=== PATIENT | male | born 1945 | race Caucasian/White ===

== ENCOUNTER 2017-03-23 09:25 | Outpatient (CLI) | payer OTHER ==
--- NOTE | 2017-04-12 13:53 | EEG ---
Referring Physician: DR. CHANA CASTRO EEG # [id number] PROCEDURE: Outpatient sleep deprived electroencephalogram NAME OF PATIENT: Richard Vega DATE OF EE03/23/2017 INDICATION: Seizure. REPORT: This is a 22-channel digital EEG recording utilizing 10-20 international electrode placement system on a patient with history of meningioma status post resection with dalila holes in the right anterior region with seizure. During wakefulness the background activity consists predominantly of low amplitude dominant alpha rhythm of 9-10 Hz. It is symmetric and reactive. This activity is penetrated occasionally by low amplitude fast beta activity and with myogenic activity representing frontalis and temporalis muscles bilaterally. There is breach rhythm noted in the right frontal region consisting of mixed frequencies. DROWSINESS AND SLEEP: Subject is able to attain periods of drowsiness with diffuse theta activity. Subject is able to attain some sleep, non-REM sleep with normal sleep potentials. There is no consistent asymmetry or paroxysmal activity noted except the breach rhythm in the right frontal region. 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 However, there is no clear epileptiform activity noted. No electrographic seizures noted. INDUCTION: HYPERVENTILATION: With fair effort results in no significant change in the background activity. PHOTIC STIMULATION: No photic drive seen. EK per minute. IMPRESSION: This is a sleep deprived EEG recorded for one hour. This EEG is considered normal. 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 However, there is no clear epileptiform activity noted. No electrographic seizures noted. Clinical correlation recommended. Electrotype Caster: [employer] Leader: [email or web address]
== END 2017-03-23 09:26 | disposition home or self-care (01) ==
LOC: EEG 09:25
PROVIDERS: ATTEND Student in an Organized Health Care Education/Training Program
DX: G40.409 Other generalized epilepsy and epileptic syndromes, not intractable, without status epilepticus (principal); Z98.890 Other specified postprocedural states
CPT/HCPCS: 95822

== ENCOUNTER 2025-02-02 07:45 | Inpatient (IN) | payer OTHER ==
[2025-02-02] MEDS ORDERED: KETAMINE 100 MG/ML (5ML VIAL) ONE (08:01)
[2025-02-02] MEDS ORDERED: Rocuronium Bromide 10 MG/ML (10ML VIAL) ONE (08:03)
[2025-02-02 10:24] LABS: Actual Bicarbonate (HCO3v) 24.2 mEq/L (22-28); Analyzer IN Cardio ER; Base Excess 1.3 mEq/L (-2.0 to +3.0); Calcium, Ionized (venous) 1.00 mmol/L (1.16-1.32); Chloride (VBG) 107 mmol/L (98-106); Hematocrit-VBG 44 % (42.0-52.0); Hemoglobin (Hb) 14.8 g/dL (12.6-17.4); Potassium (VBG) 4.27 mmol/L (3.70-5.30); Sodium 146 mmol/L (133-146)
[2025-02-02 10:55] LABS: #Basophils 0.03 10x3/uL (0.0-0.2); #Eosinophils 0.05 10x3/uL (0.0-0.7); #Monocytes 0.79 10x3/uL (0.11-0.59); #Neutrophils 13.40 10x3/uL (1.40-6.50); %Basophils 0.2 % (0.0-1.0); %Eosinophils 0.3 % (0.0-10.0); %Lymphocytes 6.5 % (21.0-51.0); %Monocytes 5.1 % (0.0-10.0); %Neutrophils 86.6 % (42.0-75.0); Hematocrit 40.1 % (42.0-52.0); Hemoglobin 13.9 g/dL (14.0-18.0); Mean Corpuscular Hemoglobin 31.0 pg (27.0-31.0); Mean Corpuscular Volume 89.3 fL (78.0-98.0); Platelet Count 131 10x3/uL (130-400); Red Blood Cell (RBC) Count 4.49 mill/uL (4.70-6.10); White Blood Cell (WBC) Count 15.48 10x3/uL (4.8-10.8)
[2025-02-02 10:57] LABS: INR-International Normal Ratio 1.4; Prothrombin Time 17.4 sec (12.0-14.7)
[2025-02-02 10:58] LABS: PTT 32.8 sec (22.9-36.1)
[2025-02-02 11:06] LABS: CK (CPK) 1007 U/L (30-200)
[2025-02-02 11:09] LABS: ALT (SGPT) 229 U/L (Less than 45); AST (SGOT) 248 U/L (11-34); Albumin 3.6 g/dL (3.1-4.5); Alkaline Phosphatase 67 U/L (40-110); Anion Gap 18 mmol/L (10-20); BUN (Urea Nitrogen) 21 mg/dL (8.4-25.7); Bilirubin, Total 0.6 mg/dL (0.3-1.2); Calc. Creatinine Clearance 0 mL/min (70-130); Calcium 8.2 mg/dL (7.8-10.44); Carbon Dioxide 23 mmol/L (23-31); Chloride 110 mmol/L (98-107); Globulin 3.1 g/dL (2.4-3.5); Glucose 230 mg/dL (83-110); Lipase 52 U/L (8-78); Magnesium 2.1 mg/dL (1.6-2.6); Potassium 4.3 mmol/L (3.5-5.1); Sodium 147 mmol/L (136-145)
[2025-02-02] MEDS ORDERED: Cefepime 2 GM VIAL ONE (11:52)
[2025-02-02 13:55] LABS: Glucose, Urine (Dipstick) 100 mg/dL (Negative); Leukocyte Negative (Negative); Protein, Urine (Dipstick) > or equal to 300 mg/dL (Neg-Trace); Specific Gravity, Urine Greater/Equal 1.030 (1.005-1.030)
[2025-02-02 14:04] LABS: Cocaine Metabolite Screen Negative (Negative); THC/Cannabinoid Screen Negative (Negative); Tricyclic Screen Negative (Negative)
[2025-02-02 14:15] LABS: CAUTI Indications for Culture < 2yrs of age
[2025-02-02 14:16] LABS: Bacteria/HPF 2+ HPF (None Seen)
[2025-02-02 14:17] LABS: Urine Culture Reflex Yes Yes
[2025-02-02] MEDS ORDERED: Electrolyte Replacement Protocol 1 EACH FS ONE (14:17)
[2025-02-02] MEDS ORDERED: Ventilator Sedation Protocol 1 EACH FS SCH (14:17)
[2025-02-02] MEDS ORDERED: Norepinephrine 8 MG/0.9% NS 250 ML IVPB SCH (14:30)
[2025-02-02] MEDS ORDERED: Fentanyl BOLUS 100 ML IVPB PRN (14:30)
[2025-02-02] MEDS ORDERED: Propofol BOLUS 1,000 MG/100 ML VIAL IV PRN (14:30)
[2025-02-02] MEDS ORDERED: DISCONTINUE PREVIOUS NARCOTIC PAIN MEDICATIONS AND BENZODIAZEPINES FS SCH (14:30)
[2025-02-02] MEDS ORDERED: Potassium Chloride 20 MEQ in Premix 1 BAG IVPB PRN (14:45)
[2025-02-02] MEDS ORDERED: PHOS-NAK 1 PKT PACK PO PRN (14:45)
[2025-02-02 14:59] LABS: Actual Bicarbonate (HCO3a) 25.1 mEq/L (22-28); Base Excess (BEa) 0.8 mEq/L (-2.0 to +3.0); CO2 Tension 38.8 mmHg (35.0-45.0); Calcium, Ionized (arterial) 1.07 mmol/L (1.12-1.30); Hematocrit-ABG 39 % (42.0-52.0); Hemoglobin (Hb) 13.3 g/dL (14.0-18.0); O2 Tension (PaO2), arterial 148.5 mmHg (> 70.0); Potassium - ABG Lab 4.20 mmol/L (3.70-5.30); pH, Arterial 7.428 (7.35-7.45)
[2025-02-02 15:00] LABS: Puncture Site Right Radial artery
[2025-02-02 17:01] VITALS: BMI 31.2
[2025-02-03 01:18] LABS: Campy jejuni + coli by PCR Negative (Negative); STEC Shiga Toxin 1+2 Negative (Negative); Salmonella spp. by PCR Negative (Negative); Shigella spp + EIEC by PCR Negative (Negative)
[2025-02-03 04:22] LABS: #Basophils Less than 0.03 10x3/uL (0.0-0.2); #Eosinophils Less than 0.03 10x3/uL (0.0-0.7); #Monocytes 0.88 10x3/uL (0.11-0.59); #Neutrophils 12.07 10x3/uL (1.40-6.50); %Basophils 0.1 % (0.0-1.0); %Eosinophils 0.0 % (0.0-10.0); %Lymphocytes 8.4 % (21.0-51.0); %Monocytes 6.2 % (0.0-10.0); %Neutrophils 84.9 % (42.0-75.0); Hematocrit 36.3 % (42.0-52.0); Hemoglobin 12.0 g/dL (14.0-18.0); Mean Corpuscular Hemoglobin 30.8 pg (27.0-31.0); Mean Corpuscular Volume 93.1 fL (78.0-98.0); Platelet Count 103 10x3/uL (130-400); Red Blood Cell (RBC) Count 3.90 mill/uL (4.70-6.10); White Blood Cell (WBC) Count 14.22 10x3/uL (4.8-10.8)
[2025-02-03 04:40] LABS: ALT (SGPT) 150 U/L (Less than 45); AST (SGOT) 173 U/L (11-34); Albumin 3.1 g/dL (3.1-4.5); Alkaline Phosphatase 43 U/L (40-110); Anion Gap 18 mmol/L (10-20); BUN (Urea Nitrogen) 28 mg/dL (8.4-25.7); Bilirubin, Total 0.8 mg/dL (0.3-1.2); Calc. Creatinine Clearance 34 mL/min (70-130); Calcium 8.2 mg/dL (7.8-10.44); Carbon Dioxide 25 mmol/L (23-31); Chloride 111 mmol/L (98-107); Globulin 2.9 g/dL (2.4-3.5); Glucose 133 mg/dL (83-110); Potassium 4.5 mmol/L (3.5-5.1); Sodium 149 mmol/L (136-145)
[2025-02-03 07:34] LABS: Actual Bicarbonate (HCO3a) 23.0 mEq/L (22-28); Base Excess (BEa) -0.2 mEq/L (-2.0 to +3.0); CO2 Tension 33.1 mmHg (35.0-45.0); Calcium, Ionized (arterial) 1.09 mmol/L (1.12-1.30); Hematocrit-ABG 38 % (42.0-52.0); Hemoglobin (Hb) 12.9 g/dL (14.0-18.0); O2 Tension (PaO2), arterial 91.9 mmHg (> 70.0); Potassium - ABG Lab 4.27 mmol/L (3.70-5.30); pH, Arterial 7.459 (7.35-7.45)
[2025-02-03 07:44] LABS: ALV-art Gradient 151.925 mmHg (0-20); Puncture Site Right Radial artery
[2025-02-03] MEDS: Enoxaparin 40 MG (0.4 mL) SYRINGE SC SCH (09:46)
[2025-02-03] MEDS: Pantoprazole 40 MG VIAL IVP SCH (09:47)
[2025-02-03 10:41] VITALS: BMI 32.2
[2025-02-03] MEDS: Carvedilol 6.25 MG TAB PER TUBE SCH (18:24)
[2025-02-04 04:23] LABS: #Basophils Less than 0.03 10x3/uL (0.0-0.2); #Eosinophils 0.07 10x3/uL (0.0-0.7); #Monocytes 0.70 10x3/uL (0.11-0.59); #Neutrophils 10.25 10x3/uL (1.40-6.50); %Basophils 0.2 % (0.0-1.0); %Eosinophils 0.6 % (0.0-10.0); %Lymphocytes 9.7 % (21.0-51.0); %Monocytes 5.7 % (0.0-10.0); %Neutrophils 83.2 % (42.0-75.0); Hematocrit 31.7 % (42.0-52.0); Hemoglobin 10.5 g/dL (14.0-18.0); Mean Corpuscular Hemoglobin 31.1 pg (27.0-31.0); Mean Corpuscular Volume 93.8 fL (78.0-98.0); Platelet Count 88 10x3/uL (130-400); Red Blood Cell (RBC) Count 3.38 mill/uL (4.70-6.10); White Blood Cell (WBC) Count 12.31 10x3/uL (4.8-10.8)
[2025-02-04 04:50] LABS: ALT (SGPT) 104 U/L (Less than 45); AST (SGOT) 182 U/L (11-34); Albumin 2.9 g/dL (3.1-4.5); Alkaline Phosphatase 46 U/L (40-110); Anion Gap 15 mmol/L (10-20); BUN (Urea Nitrogen) 35 mg/dL (8.4-25.7); Bilirubin, Total 1.2 mg/dL (0.3-1.2); Calc. Creatinine Clearance 37 mL/min (70-130); Calcium 8.3 mg/dL (7.8-10.44); Carbon Dioxide 24 mmol/L (23-31); Chloride 108 mmol/L (98-107); Globulin 3.0 g/dL (2.4-3.5); Glucose 147 mg/dL (83-110); Magnesium 1.7 mg/dL (1.6-2.6); Potassium 3.8 mmol/L (3.5-5.1); Sodium 143 mmol/L (136-145)
[2025-02-04] MEDS: Carvedilol 6.25 MG TAB PER TUBE SCH (07:13)
[2025-02-04] MEDS: niCARdipine 25 MG in Sodium Chloride 0.9% 250 ML 250 ML IVPB SCH (07:45)
[2025-02-04] MEDS: Magnesium 2 GM/50 ML(in water) 2 GM in Premix 1 BAG IVPB PRN (12:04)
[2025-02-05 05:02] LABS: #Basophils 0.03 10x3/uL (0.0-0.2); #Eosinophils 0.14 10x3/uL (0.0-0.7); #Monocytes 0.79 10x3/uL (0.11-0.59); #Neutrophils 9.89 10x3/uL (1.40-6.50); %Basophils 0.2 % (0.0-1.0); %Eosinophils 1.2 % (0.0-10.0); %Lymphocytes 9.5 % (21.0-51.0); %Monocytes 6.5 % (0.0-10.0); %Neutrophils 81.8 % (42.0-75.0); Hematocrit 27.4 % (42.0-52.0); Hemoglobin 9.4 g/dL (14.0-18.0); Mean Corpuscular Hemoglobin 30.9 pg (27.0-31.0); Mean Corpuscular Volume 90.1 fL (78.0-98.0); Platelet Count 95 10x3/uL (130-400); Red Blood Cell (RBC) Count 3.04 mill/uL (4.70-6.10); White Blood Cell (WBC) Count 12.10 10x3/uL (4.8-10.8)
[2025-02-05 05:18] LABS: ALT (SGPT) 67 U/L (Less than 45); AST (SGOT) 122 U/L (11-34); Albumin 2.5 g/dL (3.1-4.5); Alkaline Phosphatase 41 U/L (40-110); Anion Gap 14 mmol/L (10-20); BUN (Urea Nitrogen) 38 mg/dL (8.4-25.7); Bilirubin, Total 0.9 mg/dL (0.3-1.2); Calc. Creatinine Clearance 40 mL/min (70-130); Calcium 8.2 mg/dL (7.8-10.44); Carbon Dioxide 23 mmol/L (23-31); Chloride 108 mmol/L (98-107); Globulin 3.0 g/dL (2.4-3.5); Glucose 140 mg/dL (83-110); Magnesium 2.1 mg/dL (1.6-2.6); Potassium 3.6 mmol/L (3.5-5.1); Sodium 141 mmol/L (136-145)
[2025-02-05 08:49] VITALS: BP 143/82
[2025-02-05 12:09] VITALS: TEMP 98.8
[2025-02-05] MEDS: Glycopyrrolate 0.4 MG/ 2 ML VIAL SLOW IVP PRN (12:52)
[2025-02-05] MEDS: Scopolamine 1 mg/72 hour Patch TD PRN (12:52)
== END 2025-02-05 12:31 | disposition expired | DRG 308 ==
LOC: ERS 07:45 → ERHOLD 13:08 → CCU 14:22
PROVIDERS: ADMIT Internal Medicine; ATTEND Hospitalist
PROC: 5A12012 Performance of Cardiac Output, Single, Manual (ICD-10-PCS; principal; 2025-02-02)
PROC: 0D9670Z Drainage of Stomach with Drainage Device, Via Natural or Artificial Opening (ICD-10-PCS; 2025-02-02)
PROC: XX20X89 Monitoring of Brain Electrical Activity, Computer-aided Detection and Notification, New Technology Group 9 (ICD-10-PCS; 2025-02-02)
PROC: 02HV33Z Insertion of Infusion Device into Superior Vena Cava, Percutaneous Approach (ICD-10-PCS; 2025-02-02)
PROC: 0BH17EZ Insertion of Endotracheal Airway into Trachea, Via Natural or Artificial Opening (ICD-10-PCS; 2025-02-02)
PROC: 5A1945Z Respiratory Ventilation, 24-96 Consecutive Hours (ICD-10-PCS; 2025-02-02)
PROC: 0T9B70Z Drainage of Bladder with Drainage Device, Via Natural or Artificial Opening (ICD-10-PCS; 2025-02-02)
PROC: 3E03329 Introduction of Other Anti-infective into Peripheral Vein, Percutaneous Approach (ICD-10-PCS; 2025-02-02)
PROC: 4A133R1 Monitoring of Arterial Saturation, Peripheral, Percutaneous Approach (ICD-10-PCS; 2025-02-02)
PROC: 3E033XZ Introduction of Vasopressor into Peripheral Vein, Percutaneous Approach (ICD-10-PCS; 2025-02-03)
PROC: 0DH67UZ Insertion of Feeding Device into Stomach, Via Natural or Artificial Opening (ICD-10-PCS; 2025-02-04)
DX: I49.01 Ventricular fibrillation (principal); G93.41 Metabolic encephalopathy; J96.01 Acute respiratory failure with hypoxia; J18.9 Pneumonia, unspecified organism; K72.00 Acute and subacute hepatic failure without coma; N17.9 Acute kidney failure, unspecified; G93.1 Anoxic brain damage, not elsewhere classified; E87.20 Acidosis, unspecified; E87.0 Hyperosmolality and hypernatremia; Z51.5 Encounter for palliative care; Z66 Do not resuscitate; I10 Essential (primary) hypertension; E78.5 Hyperlipidemia, unspecified; I25.2 Old myocardial infarction; Z88.8 Allergy status to other drugs, medicaments and biological substances; I25.10 Atherosclerotic heart disease of native coronary artery without angina pectoris; I46.9 Cardiac arrest, cause unspecified; I49.5 Sick sinus syndrome; G47.33 Obstructive sleep apnea (adult) (pediatric); I35.0 Nonrheumatic aortic (valve) stenosis; F43.10 Post-traumatic stress disorder, unspecified; K21.9 Gastro-esophageal reflux disease without esophagitis; N40.0 Benign prostatic hyperplasia without lower urinary tract symptoms; Z79.899 Other long term (current) drug therapy; Z87.891 Personal history of nicotine dependence; Z80.9 Family history of malignant neoplasm, unspecified; Z98.890 Other specified postprocedural states; Z84.89 Family history of other specified conditions; R74.01 Elevation of levels of liver transaminase levels; E83.39 Other disorders of phosphorus metabolism; I48.91 Unspecified atrial fibrillation; G25.3 Myoclonus
CPT/HCPCS: 31500; 36416; 36556; 36600; 51702; 70450; 71045; 72125; 74018; 80053; 80306; 80307; 81001; 82010; 82550; 82805; 83605; 83690; 83735; 84100; 85025; 85610; 85730; 87040; 87076; 87086; 87324; 87449; 87505; 93005; 94002; 94003; 94760; 96360; 96365; 96366; 96368; 99292; J0692; J1650; J2060; J2270; J2470; J2543; J2704; J3475; J7030; J7042; J7050